=== PATIENT | female | born 1995 | race Two or more races ===

== ENCOUNTER 2023-08-23 15:05 | Observation (INO) | payer BC, MEDICAID ==
[2023-08-23] MEDS ORDERED: PREN-96 PO (17:06)
== END 2023-08-23 17:26 | disposition home or self-care (01) ==
LOC: LDRP 15:05
PROVIDERS: ADMIT Obstetrics & Gynecology; ATTEND Obstetrics & Gynecology
DX: O41.03X0 Oligohydramnios, third trimester, not applicable or unspecified (principal); Z3A.39 39 weeks gestation of pregnancy
CPT/HCPCS: 59025; 76818; 81002; 94760; G0378

== ENCOUNTER 2023-08-24 05:25 | Inpatient (IN) | payer BC ==
[~2023-08-24] VITALS: Ht 172.7 cm; Wt 88.5 kg
[~2023-08-24 05:25] MED LIST: PREN-96 PO
[2023-08-24] MEDS ORDERED: DERMOPLAST 60ML BOTTLE TOP PRN (05:45)
[2023-08-24] MEDS ORDERED: PROMETHAZINE HCL 25 MG/ML 1ML IV PRN (05:45)
[2023-08-24] MEDS ORDERED: BUTORPHANOL TARTRATE 2 MG/1 ML VIAL IV PRN ×2 (05:45)
[2023-08-24] MEDS ORDERED: PHISODERM TOP SOLN 240ML BTL TOP PRN (05:45)
[2023-08-24] MEDS ORDERED: LIDOCAINE 2%HCL (LOCAL ANESTH.) INJ 20ML MDV IJ PRN (05:45)
[2023-08-24] MEDS ORDERED: WITCH HAZEL-GLYCERIN PAD TOP PRN (05:45)
[2023-08-24 06:30] LABS: Basophils # (auto) 0.1 10 ^3/uL (0-0.2); Basophils % (auto) 0.8 % (0.0-2.0); Eosinophils # (auto) 0.2 10 ^3/uL (0-0.8); Hematocrit 35.1 % (36.0-46.0); Hemoglobin 11.8 g/dL (12.2-16.2); Lymphocytes # (auto) 2.1 10 ^3/uL (0.4-5.4); Lymphocytes % (auto) 18.7 % (10.0-50.0); Mean Corpuscular Hemoglobin 28.7 pg (28.0-32.0); Mean Corpuscular Hgb Conc. 33.7 g/dL (32.0-36.0); Mean Corpuscular Volume 85.3 fL (80.0-100.0); Monocytes # (auto) 0.6 10 ^3/uL (0-1.3); Monocytes % (auto) 5.2 % (0.0-12.0); Neutrophils # (auto) 8.4 10 ^3/uL (1.6-8.6); Neutrophils % (auto) 73.3 % (37.0-80.0); Red Blood Cells 4.11 10^6/uL (4.0-5.20); Red Cell Distribution Width 13.5 % (11.8-14.3); White Blood Cell 11.4 10^3/uL (4.4-10.8)
[2023-08-24 06:38] LABS: Urine Bacteria FEW /hpf (None Seen); Urine Blood Negative /uL (Negative); Urine Clarity HAZY (Clear); Urine Color Yellow (Yellow); Urine Hyaline Cast FEW /lpf (0 - 2); Urine Protein, UAD 1+ (Negative); Urine Specific Gravity 1.014 (1.001-1.035); Urine Urobilinogen Normal (Negative); Urine WBC 3 /hpf (0 - 5)
[2023-08-24 06:47] LABS: Alanine Aminotransferase 17 U/L (7-40); Albumin 3.5 g/dL (3.2-4.8); Alkaline Phosphatase 236 U/L (46-116); Anion Gap 12 (5-15); BUN/Creatinine Ratio 9.4 (10.0-20.0); Bilirubin, Total 0.5 mg/dL (0.2-1.0); Blood Urea Nitrogen 5 mg/dL (9-23); Calcium 8.7 mg/dL (8.7-10.4); Carbon Dioxide 20 mmol/L (20-30); Chloride 106 mmol/L (98-107); Glucose 144 mg/dL (74-106); Potassium 3.3 mmol/L (3.5-5.1); Sodium 138 mmol/L (136-145)
[2023-08-24 06:47] LABS: Amphetamine Screen, Urine Neg (NEGATIVE); Barbiturate Scree,Urine Neg (NEGATIVE); Benzodiazephine Screen, Urine Neg (NEGATIVE); Cocaine Screen, Urine Neg (NEGATIVE); Opiate Scree,Urine Neg (NEGATIVE)
[2023-08-24 06:48] LABS: INR 0.9 (0.9-1.15); Partial Thromboplastin Time 25.5 SEC (24.5-34.5); Prothrombin Time 9.5 sec (9.3-11.8); Total Protein 5.8 g/dL (5.7-8.2)
[2023-08-24 06:48] LABS: Cannabinoid Screen, Urine Neg (NEGATIVE); Phencyclidine Screen, Urine Neg (NEGATIVE)
[2023-08-24 06:55] LABS: Aspartate Aminotransferase 18 U/L (13-40)
[2023-08-24] MEDS ORDERED: miSOPROStol 50 MCG per PRE-CUT 1/2 TAB PO PRN (07:00)
[2023-08-24] MEDS: LACTATED RINGER'S 1,000 ML IV SCH ×2 (07:09→23:45)
[2023-08-24] MEDS: miSOPROStol 50 MCG per PRE-CUT 1/2 TAB PO PRN (07:14)
[2023-08-24] MEDS ORDERED: FAMOTIDINE 20 MG TAB PO PRN (09:15)
[2023-08-24] MEDS: LACT. RINGERS/OXYTOCIN 20UNITS 500 ML IV ONE ×2 (13:00→14:00)
[2023-08-24] MEDS: FAMOTIDINE (10MG/ML) 2ML VL IV ONE (17:00)
[2023-08-24] MEDS: LIDOCAINE 2%HCL (LOCAL ANESTH.) INJ 10ml MDV ONE (21:36)
[2023-08-24] MEDS: LIDOCAINE 2%HCL (LOCAL ANESTH.) INJ 20ML MDV ONE (21:39)
[2023-08-24] MEDS: POTASSIUM CHL 20 Meq TABLET PO SCH (22:00)
[2023-08-24] MEDS: TERBUTALINE SULFATE 1 MG/ML 1ML VIAL SC ONE (23:23)
[2023-08-24] MEDS: LACTATED RINGER'S 1,000 ML IV ONE (23:45)
[2023-08-24] MEDS: ceFAZolin 2 GM/D5W100ml 100 ML IV ONE (23:45)
[2023-08-25] VITALS (23 sets, daily range): BP systolic 98–148; BP diastolic 53–88; PULSE 61–102; RESP 16–20; TEMP 97.9–98.3; O2SAT 94–97
[2023-08-25] MEDS ORDERED: MORPHINE SULF PF 5 MG/10 ML VIAL ONE (00:22)
[2023-08-25] MEDS ORDERED: fentaNYL CITRATE 100 MCG/2 ML VL ONE (00:22)
[2023-08-25] MEDS ORDERED: KETOROLAC TROMETH 30 MG/ML 1ML VIAL ONE (00:29)
[2023-08-25] MEDS ORDERED: ONDANSETRON HCL 4 MG/2 ML VIAL ONE (00:29)
[2023-08-25] MEDS ORDERED: oxyTOCIN 10 UNIT/ML 10ML VIAL ONE (00:29)
[2023-08-25] MEDS ORDERED: DexAMETHasone SOD PHOS 10MG/1ML VIAL INJ ONE (00:29)
[2023-08-25] MEDS ORDERED: HYDROmorphone HCL 2 MG/ML VL/or syr IV PRN (02:00)
[2023-08-25] MEDS ORDERED: NALOXONE HCL 0.4 MG/ML VIAL IV PRN (02:00)
[2023-08-25] MEDS ORDERED: diphenhdrAMINE HCL 50 MG/1 ML VL IV PRN (02:00)
[2023-08-25] MEDS: NALBUPHINE HCL 10 MG/1ml INJECTION IV ONE (02:00)
[2023-08-25] MEDS ORDERED: ONDANSETRON HCL 4 MG/2 ML VIAL IV PRN ×2 (02:00→06:45)
[2023-08-25] MEDS ORDERED: ceFAZolin 1GM/50ML 50 ML IV SCH (06:00)
[2023-08-25] MEDS ORDERED: ePHEDrine SULFATE 50 MG/ML AMP IV PRN (06:45)
[2023-08-25] MEDS ORDERED: MORPHINE SULFATE 4 MG/ML SYR/VIAL IV PRN (06:45)
[2023-08-25 08:06] LABS: RPR Non Reactive (Non Reactive)
[2023-08-25] MEDS: ceFAZolin 1GM/50ML 50 ML IV SCH (09:16)
[2023-08-25] MEDS: ACETAMINOPHEN IV 1000 MG/100ML (10MG/ML) IV PRN (12:09)
[2023-08-25] MEDS: FAMOTIDINE 20 MG TAB PO ONE (19:59)
[2023-08-26] VITALS (7 sets, daily range): BP systolic 104–131; BP diastolic 62–84; PULSE 69–87; RESP 14–18; TEMP 97.8–98.5; O2SAT 96–98
[2023-08-26] MEDS ORDERED: HYDROcodone-ACET 5/325MG TAB PO PRN (00:45)
[2023-08-26] MEDS ORDERED: BISACODYL 10 MG RECT SUPP PR PRN (00:45)
[2023-08-26] MEDS: CALCIUM CARB 500 MG CHEW TAB PO PRN (00:47)
[2023-08-26] MEDS: IBUPROFEN 800 MG TAB PO PRN (01:04)
[2023-08-26] MEDS: SIMETHICONE 80 MG CHEWABLE TABLET PO SCH (06:15)
[2023-08-26] MEDS: HYDROcodone-ACET 5/325MG TAB PO PRN (06:50)
[2023-08-26 06:54] LABS: Basophils # (auto) 0 10 ^3/uL (0-0.2); Basophils % (auto) 0.2 % (0.0-2.0); Eosinophils # (auto) 0.1 10 ^3/uL (0-0.8); Eosinophils % (auto) 0.7 % (0.0-7.0); Hematocrit 32.9 % (36.0-46.0); Hemoglobin 10.8 g/dL (12.2-16.2); Lymphocytes # (auto) 2.9 10 ^3/uL (0.4-5.4); Lymphocytes % (auto) 18.2 % (10.0-50.0); Mean Corpuscular Hemoglobin 28.4 pg (28.0-32.0); Mean Corpuscular Hgb Conc. 32.8 g/dL (32.0-36.0); Mean Corpuscular Volume 86.6 fL (80.0-100.0); Monocytes # (auto) 0.9 10 ^3/uL (0-1.3); Monocytes % (auto) 5.6 % (0.0-12.0); Neutrophils # (auto) 12.1 10 ^3/uL (1.6-8.6); Neutrophils % (auto) 75.3 % (37.0-80.0); Red Cell Distribution Width 14.2 % (11.8-14.3); White Blood Cell 16.1 10^3/uL (4.4-10.8)
[2023-08-26] MEDS: DOCUSATE SOD 100 MG CAP PO SCH (09:56)
[2023-08-26] MEDS: DOCUSATE CALCIUM 240 MG CAP PO SCH (09:56)
[2023-08-26] MEDS: FERROUS SULFATE 325mg EC TAB PO SCH (10:06)
[2023-08-27 03:15] VITALS: BP 123/76; PULSE 68; RESP 16; TEMP 97.6; O2SAT 97
[2023-08-27 07:15] VITALS: BP 123/84; PULSE 61; RESP 16; TEMP 98.1; O2SAT 97
[2023-08-27] MEDS ORDERED: IBUP-1456 PO (07:16)
[2023-08-27] MEDS ORDERED: DOCU-94 PO (07:16)
[2023-08-27] MEDS ORDERED: HYDR-4902 PO (07:16)
[2023-08-27 11:25] VITALS: BP 134/88; PULSE 71; RESP 16; TEMP 98.5; O2SAT 98
[2023-08-27 19:06] LABS: Treponema pallidum Ab (FTA-Ab) Non Reactive (Non Reactive)
== END 2023-08-27 13:58 | disposition home or self-care (01) | DRG 788 ==
LOC: LDRP 05:25
PROVIDERS: ADMIT Obstetrics & Gynecology; ATTEND Obstetrics & Gynecology
PROC: 10D00Z1 Extraction of Products of Conception, Low, Open Approach (ICD-10-PCS; principal; 2023-08-26)
DX: O77.0 Labor and delivery complicated by meconium in amniotic fluid (principal); O61.9 Failed induction of labor, unspecified; O33.9 Maternal care for disproportion, unspecified; O62.1 Secondary uterine inertia; Z37.0 Single live birth; Z3A.39 39 weeks gestation of pregnancy
CPT/HCPCS: 36415; 59025; 59200; 80053; 80307; 81001; 81002; 85025; 85610; 85730; 86592; 86850; 86900; 86901; 94760; 94762; 96360; 96361; G0378; J0131; J1100; J1885; J2001; J2405; J2590; J3490